=== PATIENT | female | born 1945 | race Caucasian/White ===

== ENCOUNTER 2023-09-19 16:36 | Inpatient (IN) | payer MEDICARE, OTHER ==
[~2023-09-19] VITALS: Ht 157.5 cm; Wt 80.3 kg
[2023-09-19] MEDS ORDERED: FURO-152 PO (16:55)
[2023-09-19] MEDS ORDERED: ATOR20TA PO (16:55)
[2023-09-19] MEDS ORDERED: EZET10TA15 PO (16:55)
[2023-09-19] MEDS ORDERED: METO25TA6 PO (16:55)
[2023-09-19] MEDS ORDERED: ASPI-495 PO (16:55)
[2023-09-19] MEDS ORDERED: DILTIAZEM HCL 25 MG IV ONE (16:58)
[2023-09-19] MEDS ORDERED: DILTIAZEM HCL 25 MG IV IV ONE (17:00)
[2023-09-19 17:25] LABS: BASOPHILS # (AUTO) 0.1 K/UL (0.0-0.2); BASOPHILS % (AUTO) 0.6 % (0.0-2.0); DIFFERENTIAL COMMENT 1; EOSINOPHILS # (AUTO) 0.1 K/uL (0.0-0.7); EOSINOPHILS % (AUTO) 0.6 % (0.0-7.0); HEMATOCRIT 36.3 % (31.2-41.9); HEMOGLOBIN 12.4 g/dL (10.9-14.3); LYMPHOCYTES # (AUTO) 4.6 K/uL (0.8-4.8); LYMPHOCYTES % (AUTO) 45.5 % (20.5-51.5); MEAN CORPUSCULAR HEMOGLOBIN 32.2 uug (24.7-32.8); MEAN CORPUSCULAR HGB CONC 34 g/dL (32.3-35.6); MEAN CORPUSCULAR VOLUME 94.1 fL (75.5-95.3); MONOCYTES # (AUTO) 0.7 K/uL (0.1-1.30); MONOCYTES % (AUTO) 6.6 % (0.0-11.0); NEUTROPHILS # (AUTO) 4.7 K/uL (1.8-8.9); NEUTROPHILS % (AUTO) 46.7 % (38.5-71.5); PLATELET COUNT (AUTO) 240 K/uL (179-408); RED BLOOD CELL COUNT(AUTO) 3.86 MIL/uL (3.63-4.92); RED CELL DISTRIBUTION WIDTH 14.1 % (12.3-17.7); WHITE BLOOD COUNT (AUTO) 10.1 K/uL (3.8-11.8)
[2023-09-19 17:29] LABS: ALANINE AMINOTRANSFERASE 31 U/L (14-59); ALBUMIN 3.7 g/dL (3.4-5.0); ALKALINE PHOSPHATASE 62 U/L (50-136); ASPARTATE AMINOTRANSFERASE 22 U/L (15-37); BILIRUBIN,DIRECT 0.1 mg/dL (0.0-0.2); BILIRUBIN,TOTAL 0.2 mg/dL (0.2-1.0); CALCIUM 9.4 mg/dL (8.5-10.1); CARBON DIOXIDE 22 mmol/L (21-32); CHLORIDE 105 mmol/L (98-107); CREATININE 0.7 mg/dL (0.6-1.3); GLUCOSE 116 mg/dL (74-106); NT-PRO BNP 2784 pg/mL (0-125); POTASSIUM 4.1 mmol/L (3.5-5.1); SODIUM SERUM 141 mmol/L (136-145); TOTAL PROTEIN, SERUM 7.3 g/dL (6.4-8.2); UREA NITROGEN, BLOOD 23 mg/dL (7-18)
[2023-09-19 20:05] VITALS: BP 129/79; TEMP 98.1; O2SAT 98
[2023-09-19] MEDS ORDERED: MAGNESIUM HYDROXIDE 30 ML LIQUID UDC PO PRN (21:00)
[2023-09-19] MEDS ORDERED: ONDANSETRON 4 MG/2 ML VIAL IV PRN (21:00)
[2023-09-19] MEDS ORDERED: TEMAZEPAM 15 MG CAPSULE PO PRN (21:00)
[2023-09-19] MEDS ORDERED: FUROSEMIDE 20 MG TABLET PO PRN (21:00)
[2023-09-19] MEDS ORDERED: ATORVASTATIN 20 MG TABLET PO SCH (21:00)
[2023-09-19] MEDS ORDERED: ACETAMINOPHEN 325 MG TABLET PO PRN (21:00)
[2023-09-19] MEDS: APIXABAN 5 MG TABLET PO SCH (21:56)
[2023-09-19] MEDS: DILTIAZEM HCL 30 MG TABLET PO SCH (23:06)
[2023-09-20] VITALS: BP 128/72; TEMP 98; O2SAT 95
[2023-09-20 04:00] VITALS: BP 115/57; TEMP 98.1; O2SAT 97
[2023-09-20] MEDS: DILTIAZEM HCL 30 MG TABLET PO SCH (05:25)
[2023-09-20] MEDS: PANTOPRAZOLE SODIUM 40 MG TABLET.DR PO SCH (06:05)
[2023-09-20 07:12] LABS: BASOPHILS % (AUTO) 0.4 % (0.0-2.0); EOSINOPHILS # (AUTO) 0.1 K/uL (0.0-0.7); EOSINOPHILS % (AUTO) 1.5 % (0.0-7.0); HEMATOCRIT 36.6 % (31.2-41.9); HEMOGLOBIN 12.5 g/dL (10.9-14.3); LYMPHOCYTES # (AUTO) 3.3 K/uL (0.8-4.8); LYMPHOCYTES % (AUTO) 46.9 % (20.5-51.5); MEAN CORPUSCULAR HEMOGLOBIN 32.3 uug (24.7-32.8); MEAN CORPUSCULAR HGB CONC 34 g/dL (32.3-35.6); MEAN CORPUSCULAR VOLUME 94.4 fL (75.5-95.3); MONOCYTES # (AUTO) 0.4 K/uL (0.1-1.30); MONOCYTES % (AUTO) 6.1 % (0.0-11.0); NEUTROPHILS # (AUTO) 3.2 K/uL (1.8-8.9); NEUTROPHILS % (AUTO) 45.1 % (38.5-71.5); PLATELET COUNT (AUTO) 221 K/uL (179-408); RED BLOOD CELL COUNT(AUTO) 3.88 MIL/uL (3.63-4.92); RED CELL DISTRIBUTION WIDTH 13.8 % (12.3-17.7); WHITE BLOOD COUNT (AUTO) 7.1 K/uL (3.8-11.8)
[2023-09-20 07:17] LABS: DIFFERENTIAL COMMENT 1
[2023-09-20 07:23] LABS: CALCIUM 9.3 mg/dL (8.5-10.1); CARBON DIOXIDE 29 mmol/L (21-32); CHLORIDE 105 mmol/L (98-107); CHOLESTEROL 301 mg/dL (<200); CREATININE 0.7 mg/dL (0.6-1.3); GLUCOSE 97 mg/dL (74-106); HDL CHOLESTEROL 46 mg/dL (40-60); MAGNESIUM 1.8 mg/dL (1.8-2.4); PHOSPHOROUS 3.6 mg/dL (2.5-4.9); POTASSIUM 4.2 mmol/L (3.5-5.1); SODIUM SERUM 140 mmol/L (136-145); THYROID STIMULATING HORMONE 5.195 mIU/mL (0.358-3.740); TRIGLYCERIDES 219 MG/DL (30-150); UREA NITROGEN, BLOOD 16 mg/dL (7-18)
[2023-09-20] MEDS: DILTIAZEM HCL 60 MG TABLET PO SCH ×4 (08:30→17:02)
[2023-09-20] MEDS: APIXABAN 5 MG TABLET PO SCH ×2 (08:33→20:33)
[2023-09-20] MEDS ORDERED: ASPIRIN EC 81 MG TABLET.DR PO SCH (09:00)
[2023-09-20] MEDS ORDERED: EZETIMIBE 10 MG TABLET PO SCH (09:00)
[2023-09-20] MEDS ORDERED: FURO40TA5 PO (09:58)
[2023-09-20] MEDS ORDERED: LINA72CA PO (09:58)
[2023-09-20] MEDS ORDERED: GLIM2TAB31 PO ×2 (09:58→15:57)
[2023-09-20] MEDS ORDERED: FENO150C4 PO (09:58)
[2023-09-20] MEDS ORDERED: SUMA100T16 PO (09:58)
[2023-09-20] MEDS ORDERED: OMEP20TA5 PO (09:58)
[2023-09-20] MEDS ORDERED: NITR0.4T SL (09:58)
[2023-09-20] MEDS ORDERED: EXEN2AUT SQ (09:58)
[2023-09-20] MEDS ORDERED: ACET-2030 PO (09:58)
[2023-09-20] MEDS ORDERED: DOCU100C36 PO (09:58)
[2023-09-20] MEDS ORDERED: ESCI10TA PO (09:58)
[2023-09-20] MEDS ORDERED: LISI-782 PO (09:58)
[2023-09-20] MEDS ORDERED: ACETAMINOPHEN ES 500 MG TABLET PO PRN (10:15)
[2023-09-20] MEDS ORDERED: DILTIAZEM HCL 30 MG TABLET PO ONE (10:15)
[2023-09-20 10:48] VITALS: BP 112/64; TEMP 98.1; O2SAT 95
[2023-09-20] MEDS ORDERED: DILTIAZEM HCL 60 MG TABLET PO SCH (12:00)
[2023-09-20] MEDS ORDERED: DILTIAZEM HCL 30 MG TABLET PO SCH (12:00)
[2023-09-20 15:08] VITALS: TEMP 98.5
[2023-09-20] MEDS ORDERED: GLIMEPIRIDE 2 MG TABLET PO SCH (17:00)
[2023-09-20] MEDS ORDERED: LISINOPRIL 5 MG TABLET PO SCH (17:00)
[2023-09-20] MEDS ORDERED: FENOFIBRATE 150 MG PO SCH (18:00)
[2023-09-20] MEDS ORDERED: FENOFIBRATE NANOCRYSTALLIZED 145 MG TABLET PO SCH (18:00)
[2023-09-20 20:07] VITALS: BP 120/66; TEMP 97.5; O2SAT 98
[2023-09-20] MEDS ORDERED: ATORVASTATIN 40 MG TABLET PO SCH (21:00)
[2023-09-20] MEDS ORDERED: ESCITALOPRAM OXALATE 10 MG TABLET PO SCH (21:00)
[2023-09-21 05:43] VITALS: BP 105/62; TEMP 97.5; O2SAT 97
[2023-09-21 05:46] LABS: BASOPHILS # (AUTO) 0.1 K/UL (0.0-0.2); BASOPHILS % (AUTO) 0.8 % (0.0-2.0); EOSINOPHILS # (AUTO) 0.1 K/uL (0.0-0.7); EOSINOPHILS % (AUTO) 1.2 % (0.0-7.0); HEMATOCRIT 37.6 % (31.2-41.9); HEMOGLOBIN 12.9 g/dL (10.9-14.3); LYMPHOCYTES # (AUTO) 3.4 K/uL (0.8-4.8); LYMPHOCYTES % (AUTO) 46.2 % (20.5-51.5); MEAN CORPUSCULAR HEMOGLOBIN 32.1 uug (24.7-32.8); MEAN CORPUSCULAR HGB CONC 34 g/dL (32.3-35.6); MEAN CORPUSCULAR VOLUME 93.9 fL (75.5-95.3); MONOCYTES # (AUTO) 0.5 K/uL (0.1-1.30); NEUTROPHILS # (AUTO) 3.3 K/uL (1.8-8.9); NEUTROPHILS % (AUTO) 44.8 % (38.5-71.5); PLATELET COUNT (AUTO) 232 K/uL (179-408); RED BLOOD CELL COUNT(AUTO) 4.01 MIL/uL (3.63-4.92); RED CELL DISTRIBUTION WIDTH 13.8 % (12.3-17.7); WHITE BLOOD COUNT (AUTO) 7.4 K/uL (3.8-11.8)
[2023-09-21 05:47] LABS: DIFFERENTIAL COMMENT 1
[2023-09-21 06:02] LABS: CALCIUM 9.6 mg/dL (8.5-10.1); CARBON DIOXIDE 26 mmol/L (21-32); CHLORIDE 105 mmol/L (98-107); CREATININE 0.7 mg/dL (0.6-1.3); GLUCOSE 96 mg/dL (74-106); POTASSIUM 4.1 mmol/L (3.5-5.1); SODIUM SERUM 139 mmol/L (136-145); UREA NITROGEN, BLOOD 21 mg/dL (7-18)
[2023-09-21] MEDS: PANTOPRAZOLE SODIUM 40 MG TABLET.DR PO SCH (06:06)
[2023-09-21] MEDS: DILTIAZEM HCL 60 MG TABLET PO SCH ×2 (06:07)
[2023-09-21] MEDS: GLIMEPIRIDE 2 MG TABLET PO SCH ×2 (08:27→08:32)
[2023-09-21] MEDS: DOCUSATE SODIUM 100 MG CAPSULE PO SCH ×2 (08:27→08:32)
[2023-09-21] MEDS: APIXABAN 5 MG TABLET PO SCH (08:29)
[2023-09-21] MEDS ORDERED: Medication Not On Formulary EA (Omeprazole 20 MG) PO SCH (09:00)
[2023-09-21] MEDS ORDERED: PROPOFOL 200 MG/20 ML BOTTLE ONE (09:07)
[2023-09-21 11:18] VITALS: BP 111/61; TEMP 98.2; O2SAT 97
[2023-09-21] MEDS ORDERED: APIX5TAB PO (13:49)
== END 2023-09-21 15:45 | disposition home or self-care (01) | DRG 310 ==
LOC: ER 16:38 → TELE3 19:51
PROVIDERS: ADMIT Internal Medicine; ATTEND Nurse Practitioner Acute Care
PROC: 5A2204Z Restoration of Cardiac Rhythm, Single (ICD-10-PCS; principal; 2023-09-21)
DX: I48.0 Paroxysmal atrial fibrillation (principal); E66.9 Obesity, unspecified; E11.9 Type 2 diabetes mellitus without complications; E78.5 Hyperlipidemia, unspecified; I25.10 Atherosclerotic heart disease of native coronary artery without angina pectoris; I11.0 Hypertensive heart disease with heart failure; I50.9 Heart failure, unspecified; M19.90 Unspecified osteoarthritis, unspecified site; Z90.710 Acquired absence of both cervix and uterus; I35.0 Nonrheumatic aortic (valve) stenosis; R94.6 Abnormal results of thyroid function studies; Z68.32 Body mass index [BMI] 32.0-32.9, adult
CPT/HCPCS: 36415; 71045; 83735; 84100; 84443; 84484; 85025; 85730; 93005; 93307; 93312; A4606; A4663; G0378; J3490; J7040